=== PATIENT | male | born 1970 | race Caucasian/White ===

== ENCOUNTER 2023-05-25 11:44 | Emergency (ER) | payer OTHER, SELFPAY ==
[2023-05-25 11:51] VITALS: BP 151/88; PULSE 87; TEMP 36.8; O2SAT 94; BMI 38.3
--- NOTE | 2023-05-25 12:26 | ED_ITS ---
HPI - Wound/Laceration General Chief Complaint: Wound/Laceration Stated Complaint: HEAD BLEED /CUT Time Seen by Provider: 05/25/23 12:24 Source: patient Mode of arrival: walk-in Limitations: no limitations History of Present Illness HPI narrative: This is here from his place of employment where he sustained a laceration to his forehead area. His tetanus shots are up-to-date. The bleeding has stopped but he says it opened up and was gaping at the place of employment. He put some adhesive on it and is not bleeding at this time. He had no LOC. He did not have any pain in his head or neck. He is otherwise healthy with no complaints of other injuries today. Related Data Allergies Allergy/AdvReac Type Severity Reaction Status Date / Time No Known Drug Allergies Allergy Verified 05/25/23 11:51 Exam Narrative Exam Narrative: Awake alert excellent historian, GCS 15. Good historian no evidence of concussion syndrome. He has a vertigo 2.5 cm laceration in the midline of the mid forehead. There is no expanding hematoma. There is no devitalized tissue or evidence of foreign body. It is not bleeding at this time. Nonetheless he would like to have the area cleaned and then resutured. This is a reasonable course of action. Constitutional Vital Signs, click to edit/add: Last Vital Signs Temp 98.2 F 05/25/23 11:51 Pulse 87 05/25/23 11:51 Resp 14 05/25/23 11:51 BP 151/88 H 05/25/23 11:51 Pulse Ox 94 L 05/25/23 11:51 O2 Del Method Room Air 05/25/23 11:51 Course Vital Signs Vital signs: Vital Signs Temperature 98.2 F 05/25/23 11:51 Pulse Rate 87 05/25/23 11:51 Respiratory Rate 14 05/25/23 11:51 Blood Pressure 151/88 H 05/25/23 11:51 Pulse Oximetry 94 L 05/25/23 11:51 Oxygen Delivery Method Room Air 05/25/23 11:51 Temperature 98.2 F 05/25/23 11:51 Pulse Rate 87 05/25/23 11:51 Respiratory Rate 14 05/25/23 11:51 Blood Pressure 151/88 H 05/25/23 11:51 Pulse Oximetry 94 L 05/25/23 11:51 Oxygen Delivery Method Room Air 05/25/23 11:51 MDM - Wound/Laceration MDM Narrative Medical decision making narrative: Patient with a minor laceration. No evidence of concussion injury of other or other collateral injury. Procedure note after lidocaine 1% anesthesia with epinephrine the wound was thoroughly prepped and draped in usual fashion and reapproximated with 5-0 nylon simple interrupted sutures. Wound approximation was good. A total of five 5-0 nylon sutures were used. Discharge Plan Discharge Stand Alone Forms: Portal Instructions Chief Complaint: Wound/Laceration Clinical Impression: Face lacerations Patient Disposition: Home, Self-Care Time of Disposition Decision: 12:46 Print Language: Armenian Additional Instructions: Topical bacitracin/ice/Tylenol as needed. Sutures out 7 days Referrals: Physician,Non-Staff, MD [Primary Care Provider] - 1 week
[2023-05-25] MEDS: LIDOCAINE HCL 1% 100 MG/10 ML MDV INJ (12:39)
== END 2023-05-25 12:54 | disposition home or self-care (01) ==
PROVIDERS: Emergency Provider Emergency Medicine Emergency Medical Services
DX: S01.81XA Laceration without foreign body of other part of head, initial encounter (principal); X58.XXXA Exposure to other specified factors, initial encounter
CPT/HCPCS: 12011; 99284